=== PATIENT | female | born 1995 | race American Indian/Alaskan Native ===

== ENCOUNTER 2016-11-05 09:10 | Emergency (ER) | payer OTHER ==
[2016-11-05 09:28] VITALS: BP 110/65
--- NOTE | 2016-11-05 11:25 | Emergency Department Report ---
Entered by CAYETANO MASTERSON, acting as scribe for DHARA MCKEE PA. - General Chief Complaint: Upper Respiratory Infection Stated Complaint: COUGH/EAR CLOGGED Time Seen by Provider: 11/05/16 10:11 Source: patient Mode of arrival: Ambulatory Limitations: No Limitations - History of Present Illness Initial Comments: 20 year old female with no significant PMHx presents to the ED c/o an upper respiratory infection that began 2 weeks ago. Associated symptoms include left ear pain, productive cough with sputum, rhinorrhea, nasal congestion, chest pain , but she denies left ear discharge, SOB, fever, chills, nausea, and vomiting. Rates left ear pain a 10/10 in severity, which radiates to her right ear. Notes taking OTC cold medicine and ear drops with no relief. Denies tobacco use or being around smoke. LMP in 2012. Notes being on control, Depo. NKDA. Complaint: cough, other (left ear pain) Onset/Timin -: week(s) Severity: moderate Severity scale (0 -10): 10 Quality: aching Consistency: constant Improves With: nothing (took OTC cold medication and ear drops with no relief) Worsens With: nothing Associated Symptoms: denies other symptoms, rhinorrhea, nasal congestion, cough (productive with sputum), chest pain, ear pain (left ear). denies: fever, chills, headache, sore throat, shortness of breath, nausea, vomiting, rash Treatments Prior to Arrival: "cold medicine" - Related Data Previous Rx's Medication Instructions Recorded Last Taken Type Ondansetron [Zofran] 4 mg PO Q6HR PRN #10 tablet 04/13/13 Unknown Rx Vit-Fe Fumar-FA [ 1 each PO ONCE #30 tablet 04/13/13 07/08/14 09:00 Rx Vitamin] 1 tab ALBUTEROL Inhaler [ProAir HFA 2 puff IH QID PRN #1 inhalation 11/05/16 Unknown Rx Inhaler] Amoxicillin/K Clav Tab [Augmentin 1 tab PO Q12HR #14 tab 11/05/16 Unknown Rx 875 mg] Naproxen [Naprosyn TAB] 500 mg PO BID PRN #20 tablet 11/05/16 Unknown Rx Allergies Allergy/AdvReac Type Severity Reaction Status Date / Time No Known Allergies Allergy Unverified 04/13/13 15:51 ED Review of Systems Comment: All other systems reviewed and negative Constitutional: denies: chills, fever ENT: ear pain (left ear), congestion, other (rhinorrhea, but denies left ear drainage). denies: throat pain Respiratory: cough (productive with sputum). denies: orthopnea, shortness of breath, SOB with exertion, SOB at rest, stridor Cardiovascular: chest pain. denies: dyspnea on exertion, orthopnea Gastrointestinal: denies: nausea, vomiting Skin: denies: rash Neurological: denies: headache ED Past Medical Hx - Past Medical History Previous Medical History?: Yes Hx Hypertension: No Hx Diabetes: No Hx Deep Vein Thrombosis: No Hx Renal Disease: No Hx Sickle Cell Disease: No Hx Seizures: No Hx Asthma: No Hx HIV: No Additional medical history: Vaginal delivery x 2 - Surgical History Past Surgical History?: No - Social History Smoking Status: Never Smoker Substance Use Type: Alcohol, Non Opiate Pain, Other - Medications Home Medications: Home Medications Medication Instructions Recorded Confirmed Last Taken Type Ondansetron [Zofran] 4 mg PO Q6HR PRN #10 tablet 04/13/13 07/08/14 Unknown Rx Vit-Fe Fumar-FA [ 1 each PO ONCE #30 tablet 04/13/13 07/08/14 07/08/14 09:00 Rx Vitamin] 1 tab ALBUTEROL Inhaler [ProAir HFA 2 puff IH QID PRN #1 inhalation 11/05/16 Unknown Rx Inhaler] Amoxicillin/K Clav Tab [Augmentin 1 tab PO Q12HR #14 tab 11/05/16 Unknown Rx 875 mg] Naproxen [Naprosyn TAB] 500 mg PO BID PRN #20 tablet 11/05/16 Unknown Rx ED Physical Exam - General Limitations: No Limitations General appearance: alert, in no apparent distress - Head Head exam: Present: atraumatic, normocephalic - Eye Eye exam: Present: normal appearance, EOMI Pupils: Present: normal accommodation - ENT ENT exam: Present: mucous membranes moist. Absent: TM's normal bilaterally ( bilateral TM bulging and injected) - Expanded ENT Exam Expanded Ear exam: Present: normal external inspection TM/Canal exam: Erythema: Right TM, Left TM, Bulging: Right TM, Left TM Mouth exam: Present: normal external inspection Teeth exam: Present: normal inspection Throat exam: Positive: normal inspection - Neck Neck exam: Present: normal inspection, full ROM. Absent: tenderness, lymphadenopathy - Respiratory Respiratory exam: Present: normal lung sounds bilaterally. Absent: respiratory distress, wheezes, rales, rhonchi, stridor - Cardiovascular Cardiovascular Exam: Present: regular rate, normal rhythm - GI/Abdominal GI/Abdominal exam: Present: soft. Absent: distended - Extremities Exam Extremities exam: Present: normal inspection, full ROM - Back Exam Back exam: Present: normal inspection, full ROM - Neurological Exam Neurological exam: Present: alert, oriented X3 - Psychiatric Psychiatric exam: Present: normal affect, normal mood - Skin Skin exam: Present: warm, dry, intact. Absent: rash ED Course Vital Signs 11/05/16 09:25 Temperature 98.5 F Pulse Rate 107 H Respiratory 20 Rate Blood Pressure 110/65 O2 Sat by Pulse 99 Oximetry ED Medical Decision Making - Medical Decision Making A/P: Acute otitis media 1-Augmentin 875 twice a day 2-naproxen when necessary 3-albuterol inhaler 4-follow-up with primary care doctor ED Disposition Clinical Impression: Acute otitis externa Qualifiers: Otitis externa type: diffuse Laterality: bilateral Qualified Code(s): H60.313 - Diffuse otitis externa, bilateral Disposition: DISCHARGED TO HOME OR SELFCARE Is pt being admited?: No Does the pt Need Aspirin: No Condition: Stable Instructions: Otitis Media (ED) Prescriptions: ALBUTEROL Inhaler [ProAir HFA Inhaler] 2 puff IH QID PRN #1 inhalation PRN Reason: Shortness Of Breath Amoxicillin/K Clav Tab [Augmentin 875 mg] 1 tab PO Q12HR #14 tab Naproxen [Naprosyn TAB] 500 mg PO BID PRN #20 tablet PRN Reason: Cough Referrals: ADITYA CALVERT MD [Staff Physician] - 3-5 Days Forms: Work/School Release Form(ED) Time of Disposition: 11:24 This documentation as recorded by the ALEJA flanagan JASMINE,accurately reflects the service I personally performed and the decisions made by ,DHARA MCKEE PA.
== END 2016-11-05 11:47 | disposition home or self-care (01) ==
LOC: ED 09:10
DX: H60.313 Diffuse otitis externa, bilateral (principal)
CPT/HCPCS: 99282

== ENCOUNTER 2017-06-24 14:22 | Emergency (ER) | payer SELFPAY ==
[2017-06-24 15:17] LABS: Bilirubin,Urine NEG (Negative); Blood,Urine MOD (Negative); Ketones,Urine TR mg/dL (Negative); Leukocyte Esterase,Urine NEG (Negative); Mucus,Urine 2+ /HPF; Nitrite,Urine NEG (Negative); Protein,Urine <15 mg/dL mg/dL (Negative)
[2017-06-24 15:25] LABS: Alanine Aminotransferase 12 units/L (7-56); Albumin 4.2 g/dL (3.9-5); Albumin/Globulin Ratio 1.3 %; Alkaline Phosphatase 53 units/L (35-129); Anion Gap 15 mmol/L; BUN/Creatinine Ratio 17; Blood Urea Nitrogen 10 mg/dL (7-17); Calcium 9.1 mg/dL (8.4-10.2); Carbon Dioxide 26 mmol/L (22-30); Chloride 105.1 mmol/L (98-107); Glucose 63 mg/dL (65-100); Lipase 18 units/L (13-60); Potassium 3.5 mmol/L (3.6-5.0); Sodium 143 mmol/L (137-145); Total Protein 7.4 g/dL (6.3-8.2)
[2017-06-24 15:29] LABS: Basophils % (Auto) 0.5 % (0.0-1.8); Eosinophils % (Auto) 2.5 % (0.0-4.3); Hematocrit 37.8 % (30.3-42.9); Mean Corpuscular HGB Conc 34 % (30-34); Mean Corpuscular Hemoglobin 31 pg (28-32); Mean Corpuscular Volume 89 fl (79-97); Platelet Count 286 K/mm3 (140-440); Red Blood Count 4.24 M/mm3 (3.65-5.03); Red Cell Distribution Width 12.7 % (13.2-15.2); White Blood Count 8.2 K/mm3 (4.5-11.0)
--- NOTE | 2017-06-24 19:13 | Emergency Department Report ---
ED Abdominal Pain HPI - General Chief Complaint: Abdominal Pain Stated Complaint: ABDOMINAL PAIN Time Seen by Provider: 06/24/17 19:07 Source: patient Mode of arrival: Ambulatory Limitations: No Limitations - History of Present Illness Initial Comments: History of present illness 21-year-old female states lower abdominal suprapubic pain with hematuria not on menses. Denies back pain denies vaginal complaints MD Complaint: abdominal pain -: Gradual Location: suprapubic Quality: cramping Worsens With: nothing - Related Data Previous Rx's Medication Instructions Recorded Last Taken Type Ondansetron [Zofran] 4 mg PO Q6HR PRN #10 tablet 04/13/13 Unknown Rx Vit-Fe Fumar-FA [ 1 each PO ONCE #30 tablet 04/13/13 07/08/14 09:00 Rx Vitamin] 1 tab ALBUTEROL Inhaler [ProAir HFA 2 puff IH QID PRN #1 inhalation 11/05/16 Unknown Rx Inhaler] Naproxen [Naprosyn TAB] 500 mg PO BID PRN #20 tablet 11/05/16 Unknown Rx Amoxicillin/K Clav Tab [Augmentin 1 tab PO Q12HR #14 tab 06/24/17 Unknown Rx 875MG TAB] Allergies Allergy/AdvReac Type Severity Reaction Status Date / Time No Known Allergies Allergy Verified 06/24/17 14:42 ED Review of Systems ROS: Stated complaint: ABDOMINAL PAIN Other details as noted in HPI Comment: All other systems reviewed and negative Constitutional: denies: diaphoresis, fever, malaise Respiratory: denies: shortness of breath, SOB with exertion Cardiovascular: denies: chest pain Gastrointestinal: abdominal pain, other (no flank pain). denies: nausea, vomiting, diarrhea, constipation, hematemesis, melena ED Past Medical Hx - Past Medical History Hx Hypertension: No Hx Diabetes: No Hx Deep Vein Thrombosis: No Hx Renal Disease: No Hx Sickle Cell Disease: No Hx Seizures: No Hx Asthma: No Hx HIV: No Additional medical history: Vaginal delivery x 2 - Social History Smoking Status: Never Smoker Substance Use Type: None - Medications Home Medications: Home Medications Medication Instructions Recorded Confirmed Last Taken Type Ondansetron [Zofran] 4 mg PO Q6HR PRN #10 tablet 04/13/13 07/08/14 Unknown Rx Vit-Fe Fumar-FA [ 1 each PO ONCE #30 tablet 10/05/13 12/30/14 12/30/14 09:00 Rx Vitamin] 1 tab ALBUTEROL Inhaler [ProAir HFA 2 puff IH QID PRN #1 inhalation 11/05/16 Unknown Rx Inhaler] Naproxen [Naprosyn TAB] 500 mg PO BID PRN #20 tablet 11/05/16 Unknown Rx Amoxicillin/K Clav Tab [Augmentin 1 tab PO Q12HR #14 tab 06/24/17 Unknown Rx 875MG TAB] ED Physical Exam - General Limitations: No Limitations General appearance: alert, anxious - Head Head exam: Present: atraumatic, normocephalic - Eye Eye exam: Present: normal appearance, PERRL, EOMI - ENT ENT exam: Present: normal exam - Neck Neck exam: Present: normal inspection. Absent: meningismus - Respiratory Respiratory exam: Present: normal lung sounds bilaterally. Absent: respiratory distress, wheezes, rales, rhonchi, stridor - Cardiovascular Cardiovascular Exam: Present: regular rate, normal rhythm, normal heart sounds - GI/Abdominal GI/Abdominal exam: Present: soft. Absent: distended, guarding, rebound, rigid, mass - Psychiatric Psychiatric exam: Present: normal affect ED Course Vital Signs 06/24/17 06/24/17 14:42 18:58 Temperature 98.5 F Pulse Rate 104 H Respiratory 18 Rate Blood Pressure 114/85 108/73 O2 Sat by Pulse 100 Oximetry ED Medical Decision Making - Lab Data Result diagrams: 06/24/17 14:52 06/24/17 14:52 - Radiology Data Radiology results: report reviewed - Medical Decision Making Patient does have evidence of likely UTI CT was obtained given the nature of his symptoms with hematuria this is read as no acute process patient has no acute abdomen so for outpatient follow-up Critical care attestation.: If time is entered above; I have spent that time in minutes in the direct care of this critically ill patient, excluding procedure time. ED Disposition Clinical Impression: Abdominal pain, UTI (urinary tract infection) Disposition: -01 TO HOME OR SELFCARE Is pt being admited?: No Condition: Stable Instructions: Abdominal Pain (ED), Urinary Tract Infection in Women (ED) Additional Instructions: Return if new or alarming symptoms Prescriptions: Amoxicillin/K Clav Tab [Augmentin 875MG TAB] 1 tab PO Q12HR #14 tab Referrals: PRIMARY CARE, [Primary Care Provider] - 3-5 Days
--- NOTE | 2017-06-24 19:52 | Cat Scan Report ---
FINAL REPORT PROCEDURE: CT ABDOMEN PELVIS WO CON TECHNIQUE: Computerized axial tomography of the abdomen and pelvis was performed without intravenous contrast. This study is performed without intravascular contrast material and its sensitivity for abdominal and pelvic pathology, including neoplasms, inflammation, abscess, free fluid, thrombosis, arterial dissection and infarction, is reduced compared with a contrast enhanced study. HISTORY: flank pain COMPARISON: No prior studies are available for comparison. FINDINGS: Lower Lung colon: No focal abnormality seen. Upper Abdomen: Gallbladder is contracted and difficult to evaluate. No gross abnormality is seen. The liver, the adrenal glands pancreas and spleen are unremarkable. Kidneys, Ureters and Urinary bladder: No abnormalities are seen. No masses, calculi hydronephrosis visualized. No ureteral calculi are seen. Urinary bladder is only partially filled although shows no abnormality. Retroperitoneum: Abdominal aorta appears normal. Nonspecific subcentimeter lymph nodes are seen in the retroperitoneum. No pathologically enlarged lymph nodes are identified. Bowel: No abnormalities are identified. No evidence of bowel obstruction ascites or free intraperitoneal gas. Normal-appearing appendix is seen in the right lower quadrant. Small umbilical hernia containing adipose tissue is visualized. No herniated loops of bowel are seen. Reproductive organs: Uterus is suboptimally visualized without oral and IV contrast. No gross abnormality is seen. No abnormal adnexal masses are identified. Other: No acute bony abnormalities are identified. IMPRESSION: No acute or focal abnormalities are identified. No evidence of renal or ureteral calculi. There is no hydronephrosis..
[2017-06-24 22:13] VITALS: BP 119/66
== END 2017-06-24 21:00 | disposition home or self-care (01) ==
LOC: ED 14:22
DX: N39.0 Urinary tract infection, site not specified (principal)
CPT/HCPCS: 36415; 74176; 80053; 81001; 83690; 84703; 85025; 87086; 99284

== ENCOUNTER 2017-09-09 13:16 | Emergency (ER) | payer SELFPAY ==
[2017-09-09 13:25] VITALS: BP 112/76
[2017-09-09] MEDS ORDERED: TYLENOL PO ONE (14:44)
--- NOTE | 2017-09-09 14:47 | Emergency Department Report ---
HPI - General Chief Complaint: Back Pain/Injury - HPI HPI: 21-year-old -[place] female here with lower back pain. Pain started 3 weeks ago, has been the same since. Gets better with resting, worse with movement, has ache, with no radiation, 4/10, no fever, chills, night sweats. Has mild dysuria, no hematuria is currently on her menstrual cycle. ED Past Medical Hx - Past Medical History Hx Hypertension: No Hx Diabetes: No Hx Deep Vein Thrombosis: No Hx Renal Disease: No Hx Sickle Cell Disease: No Hx Seizures: No Hx Asthma: No Hx HIV: No Additional medical history: Vaginal delivery x 2 - Social History Smoking Status: Never Smoker Substance Use Type: None - Medications Home Medications: Home Medications Medication Instructions Recorded Confirmed Last Taken Type Ondansetron [Zofran] 4 mg PO Q6HR PRN #10 tablet 04/13/13 07/08/14 Unknown Rx Vit-Fe Fumar-FA [ 1 each PO ONCE #30 tablet 04/13/13 07/08/14 07/08/14 09:00 Rx Vitamin] 1 tab ALBUTEROL Inhaler [ProAir HFA 2 puff IH QID PRN #1 inhalation 11/05/16 Unknown Rx Inhaler] Amoxicillin/K Clav Tab [Augmentin 1 tab PO Q12HR #14 tab 06/24/17 Unknown Rx 875MG TAB] Naproxen [Naprosyn TAB] 500 mg PO BID PRN #20 tablet 09/09/17 Unknown Rx Sulfamethoxazole/Trimethoprim 1 each PO BID #14 tablet 09/09/17 Unknown Rx [Bactrim Ds Tablet] ED Review of Systems ROS: Stated complaint: BACK PAIN Other details as noted in HPI Comment: All other systems reviewed and negative Cardiovascular: as per HPI Endocrine: no symptoms reported Musculoskeletal: back pain Physical Exam - Physical Exam Vital Signs: Vital Signs 09/09/17 13:23 Temperature 98.3 F Pulse Rate 80 Respiratory 18 Rate Blood Pressure 112/76 O2 Sat by Pulse 100 Oximetry Physical Exam: - Physical Exam Physical Exam: - General Limitations: No Limitations General appearance: alert, in no apparent distress, obese - Head Head exam: Present: atraumatic, normocephalic - Eye Eye exam: Present: normal appearance - ENT ENT exam: Present: mucous membranes moist - Neck Neck exam: Present: normal inspection - Respiratory Respiratory exam: Present: normal lung sounds bilaterally. Absent: respiratory distress - Cardiovascular Cardiovascular Exam: Present: normal rhythm, tachycardia. Absent: systolic murmur, diastolic murmur, rubs, gallop - GI/Abdominal GI/Abdominal exam: Present: soft, normal bowel sounds - Extremities Exam Extremities exam: Present: normal inspection - Back Exam Back exam: Present: normal inspection - Neurological Exam Neurological exam: Present: alert, oriented X3 - Psychiatric Psychiatric exam: normal affect and mood - Skin Skin exam: Present: warm, dry, intact, normal color. Absent: rash ED Course Vital Signs 09/09/17 13:23 Temperature 98.3 F Pulse Rate 80 Respiratory 18 Rate Blood Pressure 112/76 O2 Sat by Pulse 100 Oximetry Critical care attestation.: If time is entered above; I have spent that time in minutes in the direct care of this critically ill patient, excluding procedure time. ED Disposition Clinical Impression: Back pain Qualifiers: Back pain location: low back pain Chronicity: chronic Back pain laterality: right Sciatica presence: without sciatica Qualified Code(s): M54.5 - Low back pain; G89.29 - Other chronic pain UTI (urinary tract infection) Qualifiers: Urinary tract infection type: acute cystitis Hematuria presence: without hematuria Qualified Code(s): N30.00 - Acute cystitis without hematuria Disposition: - TO HOME OR SELFCARE Is pt being admited?: No Does the pt Need Aspirin: No Condition: Stable Instructions: Low Back Strain (ED), Urinary Tract Infection in Women (ED) Prescriptions: Naproxen [Naprosyn TAB] 500 mg PO BID PRN #20 tablet PRN Reason: Cough Sulfamethoxazole/Trimethoprim [Bactrim Ds Tablet] 1 each PO BID #14 tablet
[2017-09-09 15:31] LABS: HCG Qualitative,Urine Negative (Negative)
[2017-09-09 15:36] LABS: Bacteria,Urine 1+ /HPF (Negative); Bilirubin,Urine NEG (Negative); Blood,Urine LG (Negative); Color,Urine Red (Yellow); Mucus,Urine 2+ /HPF
[2017-09-09 16:01] LABS: RBC,Urine > 182.0 /HPF (0.0-6.0)
== END 2017-09-09 16:30 | disposition home or self-care (01) ==
LOC: ED 13:16
DX: M54.5 Low back pain (principal); G89.29 Other chronic pain; N30.00 Acute cystitis without hematuria
CPT/HCPCS: 81001; 81025; 99283

== ENCOUNTER 2017-10-10 18:31 | Emergency (ER) | payer SELFPAY ==
[2017-10-10 18:45] VITALS: BP 109/76
== END 2017-10-10 22:22 | disposition left against medical advice (07) ==
LOC: ED 18:31
DX: H92.01 Otalgia, right ear (principal); Z53.21 Procedure and treatment not carried out due to patient leaving prior to being seen by health care provider

== ENCOUNTER 2018-10-12 21:22 | Outpatient (CLI) | payer OTHER ==
[2018-10-12 21:48] VITALS: BP 108/66
[2018-10-12] MEDS ORDERED: LACTATED RINGERS 1,000 ML ONE (22:03)
[2018-10-12] MEDS ORDERED: LACTATED RINGERS 1,000 ML IV ONE (23:00)
[2018-10-12 23:10] LABS: Bilirubin,Urine NEG (Negative); Blood,Urine NEG (Negative); Color,Urine Amber (Yellow); Hyaline Casts,Urine 1 /LPF; Mucus,Urine 3+ /HPF
[2018-10-12 23:14] LABS: Amphetamine Screen,Urine PRESUMPTIVE NEGATIVE; Benzodiazepines Screen,Urine PRESUMPTIVE NEGATIVE; Cannabinoid Screen,Urine PRESUMPTIVE NEGATIVE; Cocaine Screen,Urine PRESUMPTIVE NEGATIVE; Methadone Screen,Urine PRESUMPTIVE NEGATIVE; Opiate Screen,Urine PRESUMPTIVE NEGATIVE
== END 2018-10-12 23:55 | disposition home or self-care (01) ==
LOC: TRG 21:22
PROVIDERS: ATTEND Obstetrics & Gynecology
DX: O36.8130 Decreased fetal movements, third trimester, not applicable or unspecified (principal); O62.9 Abnormality of forces of labor, unspecified; O21.2 Late vomiting of pregnancy; Z3A.38 38 weeks gestation of pregnancy
CPT/HCPCS: 59025; 80307; 81001; J7120; 96360; 96361

== ENCOUNTER 2021-01-31 13:17 | Emergency (ER) | payer OTHER ==
[2021-01-31 13:36] VITALS: BP 126/83
--- NOTE | 2021-01-31 14:33 | Event Note ---
ED Screening Note Date of service: 01/31/21 Time: 14:32 ED Screening Note: Patient complains of chest pain radiating up to her jaw Also complains of vomiting Denies any chronic medical history This initial assessment/diagnostic orders/clinical plan/treatment(s) is/are subject to change based on patients health status, clinical progression and re- assessment by fellow clinical providers in the ED. Further treatment and workup at subsequent clinical providers discretion. Patient/guardian urged not to elope from the ED as their condition may be serious if not clinically assessed and managed. Initial orders include: Labs EKG Chest x-ray
[2021-01-31 15:09] LABS: Basophils % (Auto) 0.4 % (0.0-1.8); Eosinophils # (Auto) 0.1 K/mm3 (0.0-0.4); Eosinophils % (Auto) 1.6 % (0.0-4.3); Hematocrit 35.5 % (30.3-42.9); Hemoglobin 12.6 gm/dl (10.1-14.3); Lymphocytes # (Auto) 2.3 K/mm3 (1.2-5.4); Mean Corpuscular HGB Conc 36 % (30-34); Mean Corpuscular Volume 89 fl (79-97); Monocytes # (Auto) 0.4 K/mm3 (0.0-0.8); Monocytes % (Auto) 5.6 % (0.0-7.3); Platelet Count 292 K/mm3 (140-440); Red Blood Count 3.98 M/mm3 (3.65-5.03); Red Cell Distribution Width 12.6 % (13.2-15.2)
[2021-01-31 15:25] LABS: Alanine Aminotransferase 17 units/L (7-56); Albumin 3.8 g/dL (3.9-5); BUN/Creatinine Ratio 11; Blood Urea Nitrogen 9 mg/dL (7-17); Calcium 8.7 mg/dL (8.4-10.2); Hemolysis Index 10
--- NOTE | 2021-01-31 16:05 | XRay Report ---
CHEST 2 VIEWS [id number] INDICATION / CLINICAL INFORMATION: chest pain COMPARISON: None available. FINDINGS: SUPPORT DEVICES: None. HEART / MEDIASTINUM: No significant abnormality. LUNGS / PLEURA: No significant pulmonary or pleural abnormality. No pneumothorax. ADDITIONAL FINDINGS: No significant additional findings. IMPRESSION: No significant acute abnormality Signer Name: Petr Bee MD Signed: 01/31/2021 4:00 PM Workstation Name: [id number]
--- NOTE | 2021-01-31 17:49 | Emergency Department Report ---
ED Chest Pain HPI - General Chief Complaint: Chest Pain Stated Complaint: CHEST AND NECK PAIN PRESSURE BREATHING Time Seen by Provider: 01/31/21 17:36 Source: patient Mode of arrival: Ambulatory Limitations: No Limitations - History of Present Illness Initial Comments: 25-year-old female with a history of tobacco use but no other significant past history presents to the ER today with complaint of left-sided chest pain. Patient states that her pain started yesterday morning. She describes it as chest tightness and states that has been an intermittent pain that sometimes she feels radiates up into her neck and into her arm. She states that she noticed that when she was walking down some steps that she was short of breath and she also sometimes gets short of breath when the pain flares up in her chest. She states that when she woke up this morning she felt like she was about to pass out and so came to the ER to get checked out. She states that she did vomit once this morning around 11 AM. She denies any associate abdominal pain, cough, wheezing, URI symptoms, fever or chills. She denies any illicit drug use and denies any alcohol abuse. She denies any history of anxiety and she states that she has not been feeling anxious or more stressed lately. She denies any risk factors for PE or DVT. She denies any family history of heart disease. MD Complaint: chest pain -: Gradual (yesterday ) Pain Location: left chest Pain Radiation: RUE, LUE, neck - Related Data Previous Rx's Medication Instructions Recorded Last Taken Type Vit-Fe Fumar-FA [ 1 each PO ONCE #30 tablet 04/13/13 07/08/14 09:00 Rx Vitamin] 1 tab Ibuprofen [Motrin] 600 mg PO Q8H PRN #30 tablet 01/31/21 Unknown Rx Allergies Allergy/AdvReac Type Severity Reaction Status Date / Time No Known Allergies Allergy Verified 01/31/21 13:34 Heart Score - HEART Score History: Slightly suspicious EKG: Normal Age: < 45 Risk factors: 1-2 risk factors Troponin: < normal limit HEART Score: 1 - EKG Read Time Time EKG Completed: 13:27 EKG Read Time: 01:30 ED Review of Systems ROS: Stated complaint: CHEST AND NECK PAIN PRESSURE BREATHING Other details as noted in HPI Comment: All other systems reviewed and negative Constitutional: denies: chills, fever Eyes: denies: eye pain, eye discharge, vision change ENT: denies: ear pain, throat pain Respiratory: denies: cough, shortness of breath, SOB with exertion, SOB at rest, wheezing Cardiovascular: denies: chest pain, palpitations, dyspnea on exertion, orthopnea, edema, syncope, paroxysmal nocturnal dyspnea Gastrointestinal: vomiting. denies: abdominal pain, nausea, diarrhea, constipation, hematemesis, melena, hematochezia Genitourinary: denies: urgency, dysuria, frequency, hematuria, discharge, abnormal menses, dyspareunia Musculoskeletal: denies: back pain, joint swelling, arthralgia, myalgia Skin: denies: rash, lesions, change in color, change in hair/nails, pruritus Neurological: denies: headache, weakness, numbness, paresthesias, confusion, abnormal gait, vertigo ED Past Medical Hx - Past Medical History Hx Hypertension: No Hx Diabetes: No Hx Deep Vein Thrombosis: No Hx Renal Disease: No Hx Sickle Cell Disease: No Hx Seizures: No Hx Asthma: No Hx HIV: No Additional medical history: Vaginal delivery x 2/ COVID/ LIVER PROBLEMS - Surgical History Hx Cholecystectomy: Yes - Social History Smoking Status: Never Smoker - Medications Home Medications: Home Medications Medication Instructions Recorded Confirmed Last Taken Type Vit-Fe Fumar-FA [ 1 each PO ONCE #30 tablet 04/13/13 07/08/14 07/08/14 09:00 Rx Vitamin] 1 tab Ibuprofen [Motrin] 600 mg PO Q8H PRN #30 tablet 01/31/21 Unknown Rx ED Physical Exam - General Limitations: No Limitations General appearance: alert, in no apparent distress, obese - Head Head exam: Present: atraumatic, normocephalic, normal inspection - Eye Eye exam: Present: normal appearance, PERRL, EOMI Pupils: Present: normal accommodation - ENT ENT exam: Present: normal exam, mucous membranes moist, TM's normal bilaterally - Neck Neck exam: Present: normal inspection, full ROM - Respiratory Respiratory exam: Present: normal lung sounds bilaterally. Absent: respiratory distress, wheezes, rales, rhonchi, stridor - Cardiovascular Cardiovascular Exam: Present: regular rate, normal rhythm, normal heart sounds - GI/Abdominal GI/Abdominal exam: Present: soft. Absent: distended, tenderness, guarding, rebound - Extremities Exam Extremities exam: Present: normal inspection, full ROM, normal capillary refill. Absent: tenderness, calf tenderness - Back Exam Back exam: Present: normal inspection - Neurological Exam Neurological exam: Present: alert, oriented X3, CN II-XII intact, normal gait - Psychiatric Psychiatric exam: Present: normal affect, normal mood - Skin Skin exam: Present: intact ED Course Vital Signs 01/31/21 13:33 Temperature 98.7 F Pulse Rate 86 Respiratory 20 Rate Blood Pressure 126/83 O2 Sat by Pulse 99 Oximetry MAX score - Max Score Age > 65: (0) No Aspirin use within the Past 7 Days: (0) No 3 or more CAD Risk Factors: (0) No 2 or more Angina events in past 24 hrs: (0) No Known CAD with more than 50% Stenosis: (0) No Elevated Cardiac Markers: (0) No ST Deviation Greater than 0.5mm: (0) No MAX Score: 0 ED Medical Decision Making - Lab Data Result diagrams: 01/31/21 14:38 01/31/21 14:38 - EKG Data EKG shows normal: sinus rhythm Rate: normal (64) - Radiology Data Radiology results: report reviewed Patient: ROD MOBLEY MR#: [id number] : 1995 Acct:[id number] Age/Sex: 25 / F ADM Date: 01/31/21 Loc: ED Attending Dr: Ordering Physician: MARY GUILLEN Date of Service: 01/31/21 Procedure(s): XR chest routine 2V Accession Number(s): [id number] cc: MARY GUILLEN Fluoro Time In Minutes: CHEST 2 VIEWS 1536 INDICATION / CLINICAL INFORMATION: chest pain COMPARISON: None available. FINDINGS: SUPPORT DEVICES: None. HEART / MEDIASTINUM: No significant abnormality. LUNGS / PLEURA: No significant pulmonary or pleural abnormality. No pneumothorax. ADDITIONAL FINDINGS: No significant additional findings. IMPRESSION: No significant acute abnormality Signer Name: Petr Bee MD Signed: 01/31/2021 4:00 PM Workstation Name: [id number] Transcribed By: JEN Dictated By: Petr Bee MD Electronically Authenticated By: Petr Bee MD Signed Date/Time: 01/31/21 1600 DD/ 1600 TD/TT: - Medical Decision Making Chest x-ray shows nothing acute. Labs reviewed and work-up today shows no significant abnormalities including negative troponin. EKG shows sinus rhythm with a heart rate of 64. Patient was medically screened and cardiac order set was initiated about 4 hours prior to me being able to see her. Patient currently in the room, sitting up in the bed and on her phone. She currently does not appear to be in any acute distress. She is not toxic or ill- appearing. She appears hydrated. She is neurologically intact and she was observed ambulating in the ER in no distress. Patient vital signs are stable. She has a heart score of 1 (obesity &smoking). PERC score 0 Her history, exam, diagnostic testing and current condition do not suggest that this patient is having acute myocardial infarction, significant arrhythmia, unstable angina, esophageal perforation, pulmonary embolism, aortic dissection, pneumothorax, severe pneumonia, sepsis or other significant pathology that would warrant further testing, continued ED treatment, admission or cardiology or other specialist consultation at this time. Discussed lab results and x-ray results and EKG results with patient. She does have some reproducible chest wall tenderness and discussed with her that this could possibly be a cause of her's pain, the exact cause at this time unclear but I did recommend that she follows up closely with primary care doctor and drier tender especially if her symptoms persist. Patient expressed understanding of instructions and agree with plan. Patient stable at time of discharge. Critical care attestation.: If time is entered above; I have spent that time in minutes in the direct care of this critically ill patient, excluding procedure time. ED Disposition Clinical Impression: Nonspecific chest pain, Chest wall pain Disposition: DC- TO HOME OR SELFCARE Is pt being admited?: No Condition: Stable Instructions: Nonspecific Chest Pain, Adult, Chest Wall Pain Additional Instructions: I recommend that you take the ibuprofen as prescribed. Follow-up with the primary care doctor and or the drier tender listed on your discharge instruction especially if your symptoms persist. Return to the ER if your symptoms changes or worsens in any way. Prescriptions: Ibuprofen [Motrin] 600 mg PO Q8H PRN #30 tablet PRN Reason: Pain Referrals: STUART AGOSTO MD [Staff Physician] - 3-5 Days (Primary care physician) JOSE ROBB MD [Staff Physician] - 3-5 Days (Primary care physician) NELSY ABRAHAM MD [Staff Physician] - 3-5 Days ([employer]) Forms: Work/School Release Form(ED) Time of Disposition: 17:48
--- NOTE | 2021-02-01 11:52 | Electrocardiograph Report ---
[facility] Test Date: 2021-01-31 Test Time: 13:27:57 Pat Name: ROD MOBLEY Department: Room: Gender: F Draw Tender: CARLITOS : 1995 Requested By: MARY GUILLEN Order Number: [id number] Reading MD: Walter Forte Measurements Intervals [place] Rate: 64 P: 61 NC: 148 QRS: 50 QRSD: 80 T: 50 QT: 369 QTc: 381 Interpretive Statements Sinus arrhythmia Otherwise normal ECG No previous ECG available for comparison Electronically Signed On 02-01-2021 11:51:36 EDT by Walter Forte
== END 2021-01-31 18:34 | disposition home or self-care (01) ==
LOC: ED 13:17
DX: R07.89 Other chest pain (principal); Z79.899 Other long term (current) drug therapy; Z90.49 Acquired absence of other specified parts of digestive tract
CPT/HCPCS: 36415; 71046; 80053; 83690; 84484; 84703; 85025; 93005

== ENCOUNTER 2021-02-16 09:49 | Emergency (ER) | payer OTHER | END 2021-02-16 18:00 | disposition left against medical advice (07) | LOC: ED 09:49 | DX: M25.562 Pain in left knee (principal); Z53.21 Procedure and treatment not carried out due to patient leaving prior to being seen by health care provider ==

== ENCOUNTER 2021-05-30 11:23 | Emergency (ER) | payer OTHER ==
[2021-05-30 11:39] VITALS: BP 125/81
[2021-05-30] MEDS ORDERED: ACETAMINOPHEN 500 MG TAB PO ONE (11:51)
[2021-05-30] MEDS ORDERED: BENZONATATE 100 MG CAP PO ONE (11:51)
--- NOTE | 2021-05-30 12:12 | Emergency Department Report ---
Upper Respiratory HPI - HPI Chief Complaint: Upper Respiratory Infection Stated Complaint: COUGH, RUNNY NOSE Time Seen by Provider: 05/30/21 11:40 Duration: 3 Days URI Symptoms: Rhinorrhea: Yes, Sore Throat: No, Ear Pain: No, Cough: Yes, Shortness of Breath: No, Sick Contacts: Yes, Unable to Take Fluids: No, Urine Output Abnormal: No, Listless Behavior: No Other History: This is a 25-year-old female nontoxic, well nourished in appearance, no acute signs of distress presents to the ED with c/o of productive cough, body aches, rhinorrhea, nasal congestion x3 days. Patient stated had a negative Covid swab testing several days ago. Patient describes productive cough as yellow mucus production. Patient stated that her 3 children has similar symptoms. Patient denies any recent travels, long car, recent hospital stays. Patient denies any calf pain or calf tenderness. Patient denies any chest pain, short of breath, fever, chills, nausea, vomiting, hemoptysis, numbness, tingling, headache or stiff neck. Patient denies any allergies or significant past medical history. Patient stated she is not Covid vaccinated. - Home Meds and Allergies Home Medications: Previous Rx's Medication Instructions Recorded Last Taken Type Vit-Fe Fumar-FA [ 1 each PO ONCE #30 tablet 04/13/13 07/08/14 09:00 Rx Vitamin] 1 tab Ibuprofen [Motrin] 600 mg PO Q8H PRN #30 tablet 01/31/21 Unknown Rx Benzonatate [Tessalon Perles] 100 mg PO Q8HR PRN #12 capsule 05/30/21 Unknown Rx Allergies/Adverse Reactions: Allergies Allergy/AdvReac Type Severity Reaction Status Date / Time No Known Allergies Allergy Verified 05/30/21 11:39 ED Review of Systems ROS: Stated complaint: COUGH, RUNNY NOSE Other details as noted in HPI Constitutional: denies: chills, fever Eyes: denies: eye pain, eye discharge, vision change ENT: congestion. denies: ear pain, throat pain Respiratory: cough. denies: shortness of breath, wheezing Cardiovascular: denies: chest pain, palpitations Endocrine: no symptoms reported Gastrointestinal: denies: abdominal pain, nausea, diarrhea Genitourinary: denies: urgency, dysuria, discharge Musculoskeletal: denies: back pain, joint swelling, arthralgia Skin: denies: rash, lesions Neurological: denies: headache, weakness, paresthesias Psychiatric: denies: anxiety, depression Hematological/Lymphatic: denies: easy bleeding, easy bruising ED Past Medical Hx - Past Medical History Hx Hypertension: No Hx Diabetes: No Hx Deep Vein Thrombosis: No Hx Renal Disease: No Hx Sickle Cell Disease: No Hx Seizures: No Hx Asthma: No Hx HIV: No Additional medical history: Vaginal delivery x 2/ COVID/ LIVER PROBLEMS - Surgical History Hx Cholecystectomy: Yes - Social History Smoking Status: Never Smoker Substance Use Type: None - Medications Home Medications: Home Medications Medication Instructions Recorded Confirmed Last Taken Type Vit-Fe Fumar-FA [ 1 each PO ONCE #30 tablet 04/13/13 07/08/14 07/08/14 09:00 Rx Vitamin] 1 tab Ibuprofen [Motrin] 600 mg PO Q8H PRN #30 tablet 01/31/21 Unknown Rx Benzonatate [Tessalon Perles] 100 mg PO Q8HR PRN #12 capsule 05/30/21 Unknown Rx ED Bronchiolitis Physical Exam - Exam General: Vital signs noted. No distress. Alert and acting appropriately. HEENT: No Pharyngeal Erythema, No Conjuctival Injection, No Dry Mucous Membranes, No Rhinorrhea Ear: Neither TM Bulge, Neither TM Erythema, Neither EAC Discharge Neck: No Adenopathy, No Rigidity Lungs: Yes Clear Lung Sounds, Yes Good Air Exchange, Yes Cough, No Wheezes, No Stridor, No Nasal Flaring, No Retractions, No Use of Accessory Muscles Heart: Yes Regular, No Murmur Abdomen: Yes Normal Bowel Sounds, No Tenderness, No Peritoneal Signs Skin: No Rash, No Eczema Neurologic: Alert and oriented, no deficits. Musculoskeletal: Unremarkable. ED Physical Exam - General Limitations: No Limitations ED Course Vital Signs 05/30/21 11:39 Temperature 99.1 F Pulse Rate 102 H Respiratory 20 Rate Blood Pressure 125/81 [Left] O2 Sat by Pulse 98 Oximetry - Reevaluation(s) Reevaluation #1: 05/30/21 12:12 Patient is speaking in full sentences with no signs of distress noted. ED Medical Decision Making - Radiology Data [facility] [address] [place] [address] XRay Report Signed Patient: ROD MOBLEY MR#: [id number] : 1995 Acct:[id number] Age/Sex: 25 / F ADM Date: 05/30/21 Loc: ED Attending Dr: Ordering Physician: JENNIFER BURKS NP Date of Service: 05/30/21 Procedure(s): XR chest routine 2V Accession Number(s): [id number] cc: JENNIFER BURKS NP Fluoro Time In Minutes: . CHEST 2 VIEWS INDICATION: cough. COMPARISON: 01/31/2021 FINDINGS: SUPPORT DEVICES: None. HEART: Within normal limits. LUNGS/PLEURA: No acute air space or interstitial disease. No pneumothorax. ADDITIONAL FINDINGS: None. IMPRESSION: 1. No acute findings. Signer Name: Troy Barrera MD Signed: 05/30/2021 12:29 PM Workstation Name: [id number] Transcribed By: KATHY Dictated By: Troy Barrera MD Electronically Authenticated By: Troy Barrera MD Signed Date/Time: 05/30/211228 DD/ 28 TD/TT: - Medical Decision Making This is a 25-year-old female that presents with viral bronchitis. Patient is stable and was examined by me. Chest x-ray has been obtained and dictated by radiologist with normal exam. Patient is notified of x-ray results with no questions noted. Patient did have a negative Covid swab as she stated. Patient was instructed to increase hydration, rest and take Tylenol for fever episodes. Patient received tylenol and tesslone perrls in the ED. Vitals stable. Patient is nonfebrile and normal heart rate. Patient was instructed Follow-up with a primary care doctor in 3-5 days or if symptoms worsen and continue return to emergency room as soon as possible. At time time of discharge, the patient does not seem toxic or ill in appearance. No acute signs of distress noted. Patient agrees to discharge treatment plan of care. No further questions noted by the patient.nt. Critical care attestation.: If time is entered above; I have spent that time in minutes in the direct care of this critically ill patient, excluding procedure time. ED Disposition Clinical Impression: Viral bronchitis Disposition: HOME / SELF CARE / HOMELESS Is pt being admited?: No Does the pt Need Aspirin: No Condition: Stable Instructions: Chronic Bronchitis (ED) Additional Instructions: Follow-up with a primary care doctor in 3-5 days or if symptoms worsen and continue return to emergency room as soon as possible. Prescriptions: Benzonatate [Tessalon Perles] 100 mg PO Q8HR PRN #12 capsule PRN Reason: Cough Referrals: PRIMARY CAREMD [Primary Care Provider] - 3-5 Days JOSE ROBB MD [Staff Physician] - 3-5 Days Time of Disposition: 13:31
--- NOTE | 2021-05-30 12:33 | XRay Report ---
. CHEST 2 VIEWS INDICATION: cough. COMPARISON: 01/31/2021 FINDINGS: SUPPORT DEVICES: None. HEART: Within normal limits. LUNGS/PLEURA: No acute air space or interstitial disease. No pneumothorax. ADDITIONAL FINDINGS: None. IMPRESSION: 1. No acute findings. Signer Name: Troy Barrera MD Signed: 05/30/2021 12:29 PM Workstation Name: [id number]
== END 2021-05-30 14:18 | disposition home or self-care (01) ==
LOC: ED 11:23
DX: J20.8 Acute bronchitis due to other specified organisms (principal)
CPT/HCPCS: 71046

== ENCOUNTER 2021-08-02 19:27 | Emergency (ER) | payer OTHER ==
[2021-08-02 21:54] VITALS: BP 122/75
[2021-08-02] MEDS ORDERED: IBUPROFEN 800 MG TAB PO STA (23:21)
[2021-08-02] MEDS ORDERED: ACETAMINOPHEN 500 MG TAB PO STA (23:21)
--- NOTE | 2021-08-02 23:37 | Emergency Department Report ---
ED General Adult HPI - General Chief complaint: Extremity Injury, Lower Stated complaint: HURT FOOT Time Seen by Provider: 08/02/21 23:03 Source: patient Mode of arrival: Ambulatory Limitations: No Limitations - History of Present Illness Initial comments: 25-year-old -Guyanese female patient presents with complaints of right foot pain x 3 days. She states she twisted her foot while walking down stairs. She rates her pain as a 9/10 in severity and states there is some mild tingling and numbness in the foot along with swelling. She has been using ibuprofen without improvement in her symptoms. Patient states pain worsens with ambulation and movement. No prior medical history or known drug allergies per patient - Related Data Previous Rx's Medication Instructions Recorded Last Taken Type Vit-Fe Fumar-FA [ 1 each PO ONCE #30 tablet 04/13/13 07/08/14 09:00 Rx Vitamin] 1 tab Ibuprofen [Motrin] 600 mg PO Q8H PRN #30 tablet 01/31/21 Unknown Rx Benzonatate [Tessalon Perles] 100 mg PO Q8HR PRN #12 capsule 05/30/21 Unknown Rx Naproxen [EC-Naprosyn] 500 mg PO BID PRN #20 tab 08/03/21 Unknown Rx traMADoL [Ultram 50 MG tab] 50 mg PO Q8HR PRN #6 tablet 08/03/21 Unknown Rx Allergies Allergy/AdvReac Type Severity Reaction Status Date / Time No Known Allergies Allergy Verified 08/02/21 21:54 ED Review of Systems ROS: Stated complaint: HURT FOOT Other details as noted in HPI Musculoskeletal: joint swelling, arthralgia Skin: denies: change in color Neurological: paresthesias, abnormal gait ED Past Medical Hx - Past Medical History Hx Hypertension: No Hx Diabetes: No Hx Deep Vein Thrombosis: No Hx Renal Disease: No Hx Sickle Cell Disease: No Hx Seizures: No Hx Asthma: No Hx HIV: No Additional medical history: Vaginal delivery x 2/ COVID/ LIVER PROBLEMS - Surgical History Hx Cholecystectomy: Yes - Social History Smoking Status: Never Smoker Substance Use Type: None - Medications Home Medications: Home Medications Medication Instructions Recorded Confirmed Last Taken Type Vit-Fe Fumar-FA [ 1 each PO ONCE #30 tablet 04/13/13 07/08/14 07/08/14 09:00 Rx Vitamin] 1 tab Ibuprofen [Motrin] 600 mg PO Q8H PRN #30 tablet 01/31/21 Unknown Rx Benzonatate [Tessalon Perles] 100 mg PO Q8HR PRN #12 capsule 05/30/21 Unknown Rx Naproxen [EC-Naprosyn] 500 mg PO BID PRN #20 tab 08/03/21 Unknown Rx traMADoL [Ultram 50 MG tab] 50 mg PO Q8HR PRN #6 tablet 08/03/21 Unknown Rx ED Physical Exam - General Limitations: No Limitations General appearance: alert, in no apparent distress, obese - Head Head exam: Present: atraumatic, normocephalic - Eye Eye exam: Present: normal appearance. Absent: scleral icterus - Respiratory Respiratory exam: Absent: respiratory distress - Cardiovascular Cardiovascular Exam: Present: regular rate - Extremities Exam Extremities exam: Present: other (Tenderness to palpation noted to mid second third fourth and fifth metatarsals with mild swelling noted pedal pulses normal along with normal perfusion of the toes; ankle exam is normal;) - Neurological Exam Neurological exam: Present: alert, oriented X3. Absent: normal gait (Antalgic) - Psychiatric Psychiatric exam: Present: normal affect, normal mood - Skin Skin exam: Present: warm, dry, intact, normal color. Absent: rash ED Course Vital Signs 08/02/21 21:51 Temperature 98.4 F Pulse Rate 94 H Respiratory 18 Rate Blood Pressure 122/75 [Left] O2 Sat by Pulse 99 Oximetry ED Medical Decision Making - Radiology Data Radiology results: report reviewed Right foot 3 views INDICATION: Pain FINDINGS: MTP joints appear normal. Midfoot alignment appears normal. No acute fracture is seen. - Medical Decision Making 25-year-old -Guy[place] female patient presents with complaints of right foot pain x 3 days. She states she twisted her foot while walking down stairs. She rates her pain as a 9/10 in severity and states there is some mild tingling and numbness in the foot along with swelling. She has been using ibuprofen without improvement in her symptoms. Patient states pain worsens with ambulation and movement. No prior medical history or known drug allergies per patient X-rays negative for any acute bony abnormalities. Will treat for foot sprain with rice method and NSAIDs. Recommend follow-up with orthopedics as needed. She is well-appearing and stable for discharge home. Strict return precautions discussed in detail with patient who verbalizes understanding Critical care attestation.: If time is entered above; I have spent that time in minutes in the direct care of this critically ill patient, excluding procedure time. ED Disposition Clinical Impression: Right foot injury Disposition: HOME / SELF CARE / HOMELESS Is pt being admited?: No Condition: Stable Instructions: Foot Sprain Additional Instructions: Your x-ray does not show any broken bones in your foot. We will treat your injury as a foot sprain. Please ice the foot 3 times a day for 10 minutes at a time and rested as much as possible. Elevation may help to alleviate swelling. If you develop any new or worsening symptoms seek immediate emergency treatment. You may follow-up with orthopedics if your symptoms linger or you have any concerns Prescriptions: Naproxen [EC-Naprosyn] 500 mg PO BID PRN #20 tab PRN Reason: pain traMADoL [Ultram 50 MG tab] 50 mg PO Q8HR PRN #6 tablet PRN Reason: Pain Referrals: [facility] [Provider Group] - as needed Forms: Work/School Release Form(ED)
--- NOTE | 2021-08-03 00:16 | XRay Report ---
Right foot 3 views INDICATION: Pain FINDINGS: MTP joints appear normal. Midfoot alignment appears normal. No acute fracture is seen. Signer Name: Hernesto Morgan MD Signed: 08/03/2021 12:12 AM Workstation Name: [id number]
== END 2021-08-03 01:30 | disposition home or self-care (01) ==
LOC: ED 19:27
DX: S99.921A Unspecified injury of right foot, initial encounter (principal); X58.XXXA Exposure to other specified factors, initial encounter; Y93.89 Activity, other specified; Y92.89 Other specified places as the place of occurrence of the external cause; Y99.8 Other external cause status
CPT/HCPCS: 99283

== ENCOUNTER 2022-03-02 22:30 | Emergency (ER) | payer OTHER ==
[2022-03-02 22:58] VITALS: BP 139/76
[2022-03-02 23:36] LABS: Color,Urine Yellow (Yellow)
[2022-03-02 23:39] LABS: Bacteria,Urine 2+ /HPF (Negative); Mucus,Urine 2+ /HPF
[2022-03-02 23:50] LABS: Basophils % (Auto) 0.4 % (0.0-1.8); Eosinophils # (Auto) 0.1 K/mm3 (0.0-0.4); Eosinophils % (Auto) 1.4 % (0.0-4.3); Hemoglobin 12.4 gm/dl (10.1-14.3); Lymphocytes # (Auto) 2.9 K/mm3 (1.2-5.4); Lymphocytes % (Auto) 36.2 % (13.4-35.0); Mean Corpuscular HGB Conc 36 % (30-34); Mean Corpuscular Volume 88 fl (79-97); Monocytes # (Auto) 0.5 K/mm3 (0.0-0.8); Monocytes % (Auto) 6.9 % (0.0-7.3); Platelet Count 311 K/mm3 (140-440); Red Blood Count 3.99 M/mm3 (3.65-5.03)
[2022-03-03 00:10] LABS: Alanine Aminotransferase 17 units/L (7-56); Albumin 4.1 g/dL (3.9-5); BUN/Creatinine Ratio 15; Blood Urea Nitrogen 12 mg/dL (7-17); Calcium 8.7 mg/dL (8.4-10.2); Hemolysis Index 13
== END 2022-03-03 03:37 | disposition left against medical advice (07) ==
LOC: ED 22:30
DX: R10.9 Unspecified abdominal pain (principal); Z53.21 Procedure and treatment not carried out due to patient leaving prior to being seen by health care provider
CPT/HCPCS: 36415; 80053; 81001; 84703; 85025